=== PATIENT | male | born 1965 | race Caucasian/White ===

== ENCOUNTER → 2017-08-27 | Outpatient (CLI) | payer BC ==
[2017-08-27 15:08] LABS: Stool Occult Bld Immuno 1 Negative (NEGATIVE)
== END ==
LOC: LAB EV 10:30 → LAB SHORT 10:30
PROVIDERS: Student in an Organized Health Care Education/Training Program
DX: Z12.11 Encounter for screening for malignant neoplasm of colon (principal)
CPT/HCPCS: G0328

== ENCOUNTER 2021-10-12 08:41 | Day surgery (SDC) | payer BC ==
[~2021-10-12] VITALS: Ht 167.6 cm; Wt 74.4 kg
[~2021-10-12 08:41] MED LIST: FINACEA; LISI20 PO; OMEP20ER PO
--- NOTE | 2021-10-12 09:58 | NUR ---
Ambulatory in Day Surgery. History, Chart, Medications and Allergies reviewed before start of procedure. Patient States Post-Procedure ride home has been arranged JIM. DR NETTLES NOTIFIED OF PT'S ELEVATED BLOOD PRESSURE. SEE VITAL SIGNS. NO NEW ORDERS GIVEN AT THIS TIME.
--- NOTE | 2021-10-12 10:52 | NUR ---
10/12/21 1052 Beulah Carrera HISTORY,CHART, MEDICATIONS AND ALLERGIES REVIEWED BEFORE START OF PROCEDURE. PATIENT CONFIRMS NPO STATUS AND AGREES WITH SCHEDULED PROCEDURE. 3-LEAD EKG REVIEWED WITH PHYSICIAN PRIOR TO START OF PROCEDURE. MONITOR INTACT WITH CONTINUOUS PULSE OXIMETRY, 3-LEAD EKG, CAPNOGRAPHY AND INTERMITTENT BP. SUPPLEMENTAL O2 TO BE TITRATED THROUGHOUT PROCEDURE TO MAINTAIN O2 SATURATION ABOVE 90%. PATIENT DETERMINED TO BE ASA APPROPRIATE FOR MODERATE SEDATION PRIOR TO START OF PROCEDURE BY DR. NETTLES.
--- NOTE | 2021-10-12 11:45 | NUR ---
Patient up to Ambulate independently. Gait steady. Discharge instructions reviewed with patient. Patient verbalizes understanding. Copy given to patient to take home. Lungs clear T/O to Auscultation. Discharged via wheelchair to private car for ride home.
== END 2021-10-12 11:45 | disposition home or self-care (01) ==
LOC: ORSCMMR 08:41 → ORD 09:30 → ORSCMMR 09:30
PROVIDERS: Internal Medicine Gastroenterology
PROC: 0DJD8ZZ Inspection of Lower Intestinal Tract, Via Natural or Artificial Opening Endoscopic (ICD-10-PCS; principal; 2021-10-12 09:30)
DX: Z12.11 Encounter for screening for malignant neoplasm of colon (principal); I10 Essential (primary) hypertension; K21.9 Gastro-esophageal reflux disease without esophagitis; L71.9 Rosacea, unspecified; Z85.828 Personal history of other malignant neoplasm of skin; Z79.899 Other long term (current) drug therapy
CPT/HCPCS: J2250; J3010; J7120

== ENCOUNTER 2023-03-23 18:03 | Emergency (ER) | payer OTHER ==
[~2023-03-23] VITALS: Ht 167.6 cm; Wt 65.8 kg
[2023-03-23 19:20] LABS: BASOPHILS ABSOLUTE AUTO 0.06 K/mm3 (0.00-0.23); BASOPHILS PERCENT AUTO 1 % (0-2); EOSINOPHILS ABSOLUTE AUTO 0.34 K/mm3 (0.00-0.68); EOSINOPHILS PERCENT AUTO 4 % (0-6); Hematocrit 41.9 % (37.0-53.0); Hemoglobin 15.1 g/dL (13.5-17.5); IMMATURE GRAN ABSOLUTE AUTO 0.04 K/mm3 (0.00-0.10); IMMATURE GRAN PERCENT AUTO 0 % (0-1); LYMPHOCYTES PERCENT AUTO 25 % (21-46); MONOCYTES ABSOLUTE AUTO 0.75 K/mm3 (0.16-1.47); MONOCYTES PERCENT AUTO 8 % (4-13); Mean Corpuscular HGB 30.9 pg (26.0-34.0); Mean Corpuscular Volume 86 fL (80-100); Mean Platelet Volume 8.7 fL (9.1-12.4); NEUTROPHILS ABSOLUTE AUTO 5.62 K/mm3 (1.96-9.15); NEUTROPHILS PERCENT AUTO 62 % (41-73); Platelet Count 320 K/mm3 (150-400); RDW Coefficient Variation 11.5 % (11.7-14.2); RDW Standard Deviation 35.2 fL (35.1-46.3); Red Blood Cell Count 4.88 M/mm3 (4.30-5.90); White Blood Cell Count 9.11 K/mm3 (4.00-11.30)
[2023-03-23 19:39] LABS: International Normalized Ratio 0.89; Prothrombin Time Results 9.4 Sec (9.7-11.5)
[2023-03-23 19:46] LABS: Albumin, Blood 2.3 g/dL (3.4-5.0); Albumin/Globulin Ratio 0.7 (0.8-1.8); Bilirubin, Total 0.2 mg/dL (0.1-1.0); Bun/Creatinine Ratio 15.5 (12.0-20.0); Calcium, Blood 8.8 mg/dL (8.5-10.1); Creatinine, Blood 0.91 mg/dL (0.60-1.20); Globulin, Blood 3.5 g/dL (2.2-4.0); Potassium, Blood 4.2 mmol/L (3.5-5.5); Total Protein, Blood 5.8 g/dL (6.4-8.2)
[2023-03-23] MEDS ORDERED: Roxicodone5 MG PO (20:48)
[2023-03-23] MEDS ORDERED: ELIQUIS5 M2 PO (20:48)
[2023-03-23 21:20] VITALS: BP 138/78
== END 2023-03-23 21:32 | disposition home or self-care (01) ==
LOC: ER 18:03
PROVIDERS: Emergency Medicine; Student in an Organized Health Care Education/Training Program
DX: I77.9 Disorder of arteries and arterioles, unspecified (principal); I72.4 Aneurysm of artery of lower extremity; Z79.899 Other long term (current) drug therapy; Z88.2 Allergy status to sulfonamides
CPT/HCPCS: 80053; 85025; 85610; 85730; 93005; 93010; 99284-25; A9270

== ENCOUNTER 2023-12-11 06:59 | Day surgery (SDC) | payer OTHER ==
[~2023-12-11] VITALS: Ht 170.2 cm; Wt 74.0 kg
[~2023-12-11 06:59] MED LIST changes: +ELIQUIS5 M2 PO; +Roxicodone5 MG PO
[2023-12-11] MEDS ORDERED: AMLO10 (07:13)
[2023-12-11] MEDS ORDERED: AIRSUPRA 90-810.7 GM (07:13)
[2023-12-11] MEDS ORDERED: PRESERVISION A1 EAC2 (07:14)
[2023-12-11] MEDS ORDERED: ASPI81CH (07:14)
[2023-12-11] MEDS ORDERED: FINACEA50 GM (07:14)
[2023-12-11] MEDS ORDERED: B-COMPLEX WITH1 EAC2 (07:14)
[2023-12-11] MEDS ORDERED: ATOR10 (07:14)
[2023-12-11] MEDS ORDERED: BROMALINE (07:22)
[2023-12-11] MEDS ORDERED: HAWTHORN (07:28)
[2023-12-11] MEDS ORDERED: THERA-D2000 UNIT (07:28)
[2023-12-11] MEDS ORDERED: METF500 (07:29)
[2023-12-11] MEDS ORDERED: LISI20 (07:29)
[2023-12-11] MEDS ORDERED: LUTEIN-ZEAXANT1 EAC3 (07:29)
[2023-12-11] MEDS ORDERED: OMEGA-3 + VITA200 ML (07:29)
[2023-12-11] MEDS ORDERED: Ketoconazole15 GM (07:29)
[2023-12-11] MEDS ORDERED: MAGNESIUM OXID500 MG (07:29)
[2023-12-11] MEDS ORDERED: L-Tryptophan500 MG (07:30)
[2023-12-11] MEDS ORDERED: Vitamin C100 M1 (07:30)
[2023-12-11] MEDS ORDERED: OMEP20ER (07:30)
[2023-12-11] MEDS ORDERED: TOCO1000 (07:30)
[2023-12-11] MEDS ORDERED: ZINC15 (07:30)
[2023-12-11] MEDS ORDERED: Selenomax200 MCG (07:30)
[2023-12-11] MEDS ORDERED: TURMERIC ROOT5000 GM (07:30)
[2023-12-11] MEDS ORDERED: propofoL 60 ML IV ONE (07:47)
[2023-12-11] MEDS ORDERED: Lactated Ringer's 1,000 ML IV ONE ×2 (07:48→08:02)
[2023-12-11 10:37] VITALS: BP 125/81
--- NOTE | 2023-12-11 10:42 | NUR ---
12[facility]11[facility]23 [facility] PT REPORTED ABDOMINAL PAIN 5/10, STATES "FEELS LIKE BLOATING/CRAMPING". PT REPORTED ADBOMINAL PAIN EXPERIENCED AFTER PROCEDURE IS A LITTLE WORSE THAN THE PAIN HE HAD AT BASELINE WHEN HE CAME INTO FACILITY, BUT IT IS "A LITTLE, BUT NOT THAT MUCH WORSE." RN EXPLAINED TO PATIENT THAT PAIN/DISCOMFORT COULD BE FROM THE AIR THAT IS USED TO INFLATE THE COLON FOR THE PROCEDURE AND ENCOURAGED PATIENT TO PASS GAS TO HELP ALLEVIATE DISCOMFORT/PAIN. 0910:PATIENT VERBALIZED UNDERSTANDING AND STATED THAT PAIN WAS TOLERABLE AND EXPRESSED READINESS TO GO HOME. PATIENT REPORTED THAT PO FLUIDS IMPROVED THE SORENESS FELT IN HIS THROAT.
== END 2023-12-11 09:25 | disposition home or self-care (01) ==
LOC: ORSCSDS 06:59
PROVIDERS: Surgery
PROC: 0DB78ZX Excision of Stomach, Pylorus, Via Natural or Artificial Opening Endoscopic, Diagnostic (ICD-10-PCS; principal; 2023-12-11 08:00)
PROC: 0DJD8ZZ Inspection of Lower Intestinal Tract, Via Natural or Artificial Opening Endoscopic (ICD-10-PCS; principal; 2023-12-11 08:00)
DX: K21.9 Gastro-esophageal reflux disease without esophagitis (principal); R93.3 Abnormal findings on diagnostic imaging of other parts of digestive tract; K29.70 Gastritis, unspecified, without bleeding; K31.7 Polyp of stomach and duodenum; E11.9 Type 2 diabetes mellitus without complications; E78.5 Hyperlipidemia, unspecified; I10 Essential (primary) hypertension; Z79.899 Other long term (current) drug therapy
CPT/HCPCS: 82947; 88305; 88342; J2704; J7120